=== PATIENT | male | born 1945 | race Caucasian/White ===

== ENCOUNTER → 2020-08-25 | Outpatient (CLI) | payer MEDICARE, BC | LOC: HEART CORB 09:51 | DX: R07.2 Precordial pain (principal); R00.1 Bradycardia, unspecified; I25.10 Atherosclerotic heart disease of native coronary artery without angina pectoris; I10 Essential (primary) hypertension; E78.5 Hyperlipidemia, unspecified; I71.9 Aortic aneurysm of unspecified site, without rupture; I25.2 Old myocardial infarction; Z95.1 Presence of aortocoronary bypass graft; Z95.5 Presence of coronary angioplasty implant and graft | CPT/HCPCS: 78452; A9502; J2785 ==

== ENCOUNTER → 2021-03-31 | Outpatient (CLI) | payer MEDICARE, BC ==
[2021-03-31 14:13] LABS: HEMOGLOBIN 14.8 gm/dl (14.0-17.5); RED BLOOD COUNT 4.6 M/UL (4.20-5.50); WHITE BLOOD COUNT 8.3 K/UL (4.5-11.0)
[2021-03-31 14:30] LABS: BUN/CREATININE RATIO 13 (0-10)
== END ==
LOC: LAB 13:42
PROVIDERS: Internal Medicine Interventional Cardiology
DX: I25.119 Atherosclerotic heart disease of native coronary artery with unspecified angina pectoris (principal); I71.9 Aortic aneurysm of unspecified site, without rupture; R07.89 Other chest pain; J44.9 Chronic obstructive pulmonary disease, unspecified; I10 Essential (primary) hypertension; Z95.1 Presence of aortocoronary bypass graft; E78.5 Hyperlipidemia, unspecified; R07.2 Precordial pain; R00.1 Bradycardia, unspecified
CPT/HCPCS: 36415; 80048; 85025; 85610; 85730; 93005

== ENCOUNTER 2021-04-20 06:32 | Outpatient (CLI) | payer MEDICARE, BC ==
[~2021-04-20] VITALS: Ht 175.3 cm; Wt 96.2 kg
[2021-04-20] MEDS ORDERED: AMLODIPINE BES2.5 MG PO (07:41)
[2021-04-20] MEDS ORDERED: ISOSORBIDE MONO30 MG PO (07:42)
[2021-04-20] MEDS ORDERED: ASPIRIN81 MG PO (07:42)
[2021-04-20] MEDS ORDERED: SIMVASTATIN10 MG PO (07:43)
[2021-04-20] MEDS ORDERED: VITAMIN D21250 MCG PO (07:44)
[2021-04-20 19:22] LABS: RED BLOOD COUNT 4.45 M/UL (4.20-5.50)
[2021-04-20 19:38] LABS: BUN/CREATININE RATIO 16 (0-10)
[2021-04-21 03:06] LABS: HEMOGLOBIN 13.8 gm/dl (14.0-17.5); RED BLOOD COUNT 4.42 M/UL (4.20-5.50); WHITE BLOOD COUNT 7.8 K/UL (4.5-11.0)
[2021-04-21 03:40] LABS: BUN/CREATININE RATIO 16 (0-10)
[2021-04-21] MEDS ORDERED: BRILINTA 90 MG90 MG PO (12:27)
[2021-04-21] MEDS ORDERED: LOPRESSOR 25 MG25 MG PO (12:27)
== END 2021-04-21 13:51 | disposition home or self-care (01) ==
LOC: CATH 06:32 → PROG CARE 14:49 → CATH 04-21 13:51
PROVIDERS: Internal Medicine Interventional Cardiology
DX: T82.855A Stenosis of coronary artery stent, initial encounter (principal); I10 Essential (primary) hypertension; E78.5 Hyperlipidemia, unspecified; I25.10 Atherosclerotic heart disease of native coronary artery without angina pectoris; Y71.2 Prosthetic and other implants, materials and accessory cardiovascular devices associated with adverse incidents; Y92.9 Unspecified place or not applicable; Y83.2 Surgical operation with anastomosis, bypass or graft as the cause of abnormal reaction of the patient, or of later complication, without mention of misadventure at the time of the procedure; Z95.1 Presence of aortocoronary bypass graft; Z79.82 Long term (current) use of aspirin; Z82.49 Family history of ischemic heart disease and other diseases of the circulatory system; Z87.891 Personal history of nicotine dependence; Z20.822 Contact with and (suspected) exposure to COVID-19
CPT/HCPCS: 36415; 80048; 82550; 82553; 84484; 85025; 85347; 93005; 97161; 99152; 99153; C1725; C1769; C1874; C1887; C9600; J0360; J1644; J2250; J3010; J3246; J7030; J7040; Q9967